=== PATIENT | female | born 1960 | race Caucasian/White ===

== ENCOUNTER 2018-12-14 05:10 | Day surgery (SDC) | payer OTHER ==
[~2018-12-14 05:10] MED LIST: ATORVASTATIN CA20 MG PO; FORTAMET1000 MG PO; GLIPIZIDE ER10 MG PO; LISINOPRIL10 MG PO
[2018-12-14] MEDS ORDERED: PERCOCET 5-3251 EACH PO (09:54)
[2018-12-14] MEDS ORDERED: NEURONTIN300 MG PO (09:55)
[2018-12-14] MEDS ORDERED: POLY119PG PO (09:56)
== END 2018-12-14 12:15 | disposition home or self-care (01) ==
LOC: CIR.AMB 05:10
DX: K43.0 Incisional hernia with obstruction, without gangrene (principal)